=== PATIENT | female | born 1945 | race Caucasian/White ===

== ENCOUNTER → 2021-01-31 | Outpatient (CLI) | payer MEDICARE ==
[~2021-01-31] MED LIST: APIX5TAB3 PO; GABA-530 PO; LEVO75TA PO; LISI1TAB51 PO; MIRT-116 PO; ONDA4TAB6 PO; ZOLP5TAB8 PO
[2021-01-31 11:59] LABS: ABG BASE EXCESS 4.5 mmol/L (-2.0-2.0); ABG HCO3 28.9 mmol/L (22.0-26.0); ABG OXYGEN SATURATION 95.7 % (94-97); ABG PCO2 (T) 42.3 mmHg (32.0-45.0); ABG PO2 (T) 79.1 mmHg (75.0-100.0); ALLEN'S TEST POSITIVE; FCOHb 0.6 % (0.0-3.9); FMetHb 0.1 % (0.0-1.5); TOTAL HEMOGLOBIN 14.9 G/dl (12.0-16.0)
== END | disposition home or self-care (01) ==
LOC: LAB 11:10
PROVIDERS: ATTEND Physician Assistant
DX: I10 Essential (primary) hypertension (principal)
CPT/HCPCS: 36600; 82803; 85018

== ENCOUNTER 2024-01-12 10:44 | Day surgery (SDC) | payer MEDICARE ==
[2024-01-12] VITALS (7 sets, daily range): BP systolic 127–174; BP diastolic 64–94; PULSE 61–72; RESP 16; TEMP 97.6; O2SAT 90–95
[~2024-01-12] VITALS: Ht 167.6 cm; Wt 98.7 kg
[~2024-01-12 10:44] MED LIST changes: -MIRT-116 PO; +MIRT-142 PO
[2024-01-12] MEDS: normal saline 1,000 ML IV SCH (11:10)
[2024-01-12] MEDS ORDERED: DUPI300P SUBCUT (11:34)
[2024-01-12] MEDS ORDERED: ACYC-1 PO (11:34)
[2024-01-12] MEDS ORDERED: ACET-1025 PO (11:34)
[2024-01-12] MEDS ORDERED: SOTA80TA10 PO (11:34)
[2024-01-12] MEDS ORDERED: LEVO75TA7 PO (11:34)
[2024-01-12] MEDS ORDERED: DICY20TA12 PO (11:34)
[2024-01-12] MEDS ORDERED: ROSU20TA73 PO (11:34)
[2024-01-12] MEDS ORDERED: HYDR12.55 PO (11:34)
[2024-01-12 11:50] LABS: BASOPHILS % (AUTO) 0.6 % (0-1); EOSINOPHILS # (AUTO) 0.2 X10'3 (0-0.9); EOSINOPHILS % (AUTO) 2.5 % (0-6); HEMATOCRIT 43.8 % (35.0-45.0); HEMOGLOBIN 14.3 g/dl (12.0-16.0); LYMPHOCYTES # (AUTO) 1.3 X10'3 (1.1-4.8); LYMPHOCYTES % (AUTO) 16.4 % (21-51); MEAN CORPUSCULAR HEMOGLOBIN 30.2 PG (27.0-31.0); MEAN CORPUSCULAR HGB CONC 32.8 g/dL (33.0-36.5); MEAN CORPUSCULAR VOLUME 92.3 FL (78-98); MEAN PLATELET VOLUME 9.9 FL (7.4-10.4); MONOCYTES # (AUTO) 0.7 X10'3 (0-0.9); MONOCYTES % (AUTO) 8.2 % (2-12); NEUTROPHILS # (AUTO) 5.8 X10'3 (1.8-7.7); NEUTROPHILS % (AUTO) 72.3 % (42-75); PLATELET COUNT 194 X10'3 (140-440); RED BLOOD COUNT 4.74 X10'6 (4.20-5.60); RED CELL DISTRIBUTION WIDTH 14.3 % (11.5-14.5)
[2024-01-12] MEDS ORDERED: LIDOcaine 1% (10mg/ml) 2ml vial ONE (11:52)
[2024-01-12] MEDS ORDERED: verapamil 2.5 mg/ml inj IV ONE (11:52)
[2024-01-12] MEDS ORDERED: midazolam 1 mg/ML 2ml injection ONE (11:52)
[2024-01-12] MEDS ORDERED: fentaNYL/PF 50MCG/1 ML 2ML syringe ONE (11:52)
[2024-01-12] MEDS ORDERED: iohexol 350MG/ML 100ml bottle IV ONE (11:53)
[2024-01-12] MEDS ORDERED: heparin 1,000unit/ml 10ml vial 10 ML ONE (11:53)
[2024-01-12 12:01] LABS: ALBUMIN 3.8 G/DL (3.4-5.0); ANION GAP 10 (8-16); BLOOD UREA NITROGEN 21 MG/DL (7-18); BUN/CREATININE RATIO 24.7 (10.0-20.0); CALCIUM 9.1 MG/DL (8.5-10.1); CHLORIDE 104 MMOL/L (99-107); CREATININE 0.85 MG/DL (0.40-0.90); GLUCOSE 108 MG/DL (70-104); POTASSIUM 3.5 MMOL/L (3.5-5.1); SODIUM 140 MMOL/L (135-145); TOTAL CARBON DIOXIDE 26.3 MMOL/L (24-32); eCRCL 51 ML/MIN; eGFR 65 ML/MIN
[2024-01-12 12:05] LABS: APTT 27 SECONDS (22-32); PROTHROMBIN TIME 10.7 SECONDS (9.0-12.0)
[2024-01-12] MEDS ORDERED: nitroGLYCERIN 500mcg/5mL D5W 5 ML IV ONE (12:11)
[2024-01-12] MEDS: diphenhydrAMINE 25mg capsule PO PRN (12:34)
[2024-01-12] MEDS: LORazepam 0.5 MG tablet PO PRN (12:34)
[2024-01-12] MEDS ORDERED: HYDROcodone/acetaminophen 5mg/325mg tablet PO PRN (14:15)
[2024-01-12] MEDS ORDERED: HYDROcodone/acetaminophen 10/325mg tab PO PRN (14:15)
[2024-01-12 19:05] LABS: CHOL/HDL RATIO 2.5 (0.00-4.99); CHOLESTEROL 147 MG/DL (0-200); HDL CHOLESTEROL 58 MG/DL (35-60); LDL CHOLESTEROL 68 MG/DL (50-100); TRIGLYCERIDES 150 MG/DL (20-135)
== END 2024-01-12 15:35 | disposition home or self-care (01) ==
LOC: SSTAY O 10:44
PROVIDERS: ATTEND Student in an Organized Health Care Education/Training Program
DX: R06.02 Shortness of breath (principal); I49.1 Atrial premature depolarization; I10 Essential (primary) hypertension; I25.119 Atherosclerotic heart disease of native coronary artery with unspecified angina pectoris; E78.00 Pure hypercholesterolemia, unspecified; E03.9 Hypothyroidism, unspecified; G47.33 Obstructive sleep apnea (adult) (pediatric); Z86.718 Personal history of other venous thrombosis and embolism; Z86.711 Personal history of pulmonary embolism; Z79.890 Hormone replacement therapy; Z79.899 Other long term (current) drug therapy; Z88.5 Allergy status to narcotic agent; Z88.8 Allergy status to other drugs, medicaments and biological substances
CPT/HCPCS: 36415; 80048; 80061; 85025; 85610; 85730; 93005; 93458; 99152; A6258; A6402; C1894; J1644; J2001; J2250; J3010; J3490; J7030; Q0163; Q9967; Z7610

== ENCOUNTER 2025-03-04 13:09 | Outpatient (CLI) | payer MEDICARE ==
[~2025-03-04 13:09] MED LIST changes: +ACET-1025 PO; +ACYC-1 PO; +CHLO25TA10 PO; +DUPI300P SUBCUT; -GABA-530 PO; -LISI1TAB51 PO; -MIRT-142 PO; -ONDA4TAB6 PO; +ROSU20TA98 PO; +SOTA80TA10 PO; -ZOLP5TAB8 PO
--- NOTE | 2025-03-04 14:20 | RADIOLOGY REPORT ---
Exam: US US NON VASCULAR Clinical History: LOCALIZED SWELLING, MASS AND LUMP RT UPPER LIMB Comparison: None Technique: Targeted sonographic evaluation of the soft tissues of the right arm was obtained utilizing grayscal e and color Doppler imaging. Findings/Impression: Encapsulated hyperechoic structure in the superficial soft-tissue of the right arm measures 8.1 x 4.3 x 3.8 cm. This is a nonspecific finding and may represent a benign lipoma. Clinical correlation adv ised. Nonemergent MRI without and with intravenous contrast or ultrasound-guided biopsy could be cons idered to further evaluate if clinically indicated.
== END 2025-03-04 23:59 | disposition home or self-care (01) ==
LOC: RAD 13:09
PROVIDERS: ATTEND Family Medicine
DX: R22.31 Localized swelling, mass and lump, right upper limb (principal)
CPT/HCPCS: 76882

== ENCOUNTER 2025-04-07 12:04 | Outpatient (CLI) | payer MEDICARE ==
--- NOTE | 2025-04-07 14:34 | RADIOLOGY REPORT ---
CLINICAL HISTORY: 79 years old, Female; MASS IN ARM. TECHNIQUE: Multi sequence multi planar MRI images of the right forearm were obtained without IV contrast. COMPARISON: Ultrasound dated 03/04/2025. FINDINGS: Fatty mass in the proximal right forearm, appears to be at least partially within the supinator muscle measures up to 7.3 x 4.0 x 6.4 cm, encircling the proximal radius, coursing along the antecubital fossa, abutting the distal biceps and brachialis tendons, and displacing adjacent muscles. Questionable thin septations in the mass. No nodular component of the mass is seen. Osseous structures are intact and appear otherwise unremarkable. Visualized tendons appear intact. Subcutaneous tissues are unremarkable. IMPRESSION: Fatty mass, at least partially within the supinator muscle and at the antecubital fossa as detailed above, most consistent with a benign lipoma. There are few thin septations within the mass. No solid appearing component of the mass.
== END 2025-04-07 23:59 | disposition home or self-care (01) ==
LOC: MRI02 12:04
PROVIDERS: ATTEND Physician Assistant
DX: R22.31 Localized swelling, mass and lump, right upper limb (principal)
CPT/HCPCS: 73218